=== PATIENT | male | born 1935 | race African-American/Black ===

== ENCOUNTER 2018-11-13 14:46 | Emergency (ER) | payer OTHER ==
[~2018-11-13] VITALS: Ht 165.1 cm; Wt 75.0 kg
[2018-11-13] MEDS ORDERED: ASPI81TA26 PO (16:45)
[2018-11-13] MEDS ORDERED: ALBU2TA PO (16:45)
[2018-11-13] MEDS ORDERED: LISI-538 PO (16:45)
[2018-11-13] MEDS ORDERED: ATOR1TAB21 PO (16:45)
[2018-11-13] MEDS ORDERED: AMLO5TAB6 PO (16:45)
[2018-11-13 17:30] VITALS: BP 150/70
--- NOTE | 2018-11-13 17:59 | REP ---
Clinical: Trauma . Findings: Age-related atrophy and microvascular ischemic changes are appreciated. The ventricles and sulci are symmetric. Portillo-white differentiation is maintained. There is no evidence for acute intracranial hemorrhage, mass/mass effect, pathology or infarction. No extra-axial fluid collection. Calvarium is intact. Paranasal sinuses and mastoid air cells are clear. Impression: Age related atrophy and microvascular ischemic changes. No acute intracranial hemorrhage, infarction, or mass/mass effect. Electronically Signed by Conor Dobbs MD 11/13/2018 05:51 P
[2018-11-13] MEDS ORDERED: DERMABOND TOPICAL SKIN ADHESIVE TOP ONE (18:15)
== END 2018-11-13 18:22 | disposition home or self-care (01) ==
LOC: M ED 14:46
DX: S01.01XA Laceration without foreign body of scalp, initial encounter (principal); W17.89XA Other fall from one level to another, initial encounter; Y92.018 Other place in single-family (private) house as the place of occurrence of the external cause; I10 Essential (primary) hypertension; E78.5 Hyperlipidemia, unspecified; Z79.899 Other long term (current) drug therapy; Z79.82 Long term (current) use of aspirin; Z88.0 Allergy status to penicillin; Z88.5 Allergy status to narcotic agent; Z88.8 Allergy status to other drugs, medicaments and biological substances